=== PATIENT | male | born 1980 | race Caucasian/White ===

== ENCOUNTER → 2017-02-14 | Day surgery (SDC) | payer OTHER ==
[~2017-02-14] VITALS: Ht 182.9 cm; Wt 102.1 kg
[~2017-02-14] MED LIST: EPINEPHrine 1MG/ML INJ 30ML MD-VIAL As Ordered ONE; LIDOCAINE 2% INJ 100 MG/5 ML SDV (FOR ANES.) As Ordered ONE; LIDOCAINE 2% JELLY 30 ML As Ordered ONE; LR 1,000 ML IV SCH; METHYLENE BLUE 0.5% (5MG/ML) 10 ML AMP (PROVAYBLUE)(Q9968 PER 1MG) As Ordered ONE; MIDAZOLAM INJ 2 MG/2 ML VIAL (J2250) As Ordered ONE; ONDANSETRON 4MG/2ML VIAL (J2405) As Ordered ONE; ONDANSETRON 4MG/2ML VIAL (J2405) IV PRN; PERCOCET 5MG/325MG TAB As Ordered ONE; PROPOFOL 200 MG/20 ML VIAL As Ordered ONE; REMIFENTANIL 1MG 3ML VIAL As Ordered ONE; ROCURONIUM BROMIDE 50 MG/5 ML VIAL/SYRINGE As Ordered ONE; SODIUM CHLORIDE 0.9% NASAL GEL 15MG (AYR) As Ordered ONE; dexameTHASONE 4 MG/ML 1ML VIAL (J1100) As Ordered ONE; dexameTHASONE 4 MG/ML 1ML VIAL (J1100) IV ONE; fentaNYL 100 MCG/2 ML INJECTION (J3010) As Ordered ONE; hydrALAZINE INJ 20 MG/ML VIAL As Ordered ONE
[2017-02-14] MEDS: LIDOCAINE W/EPINEPHRINE 1% 20ML VIAL As Ordered ONE ×2 (07:54→09:04)
[2017-02-14] MEDS: PERCOCET 5MG/325MG TAB PO PRN ×2 (09:30→10:00)
[2017-02-14] MEDS: fentaNYL 100 MCG/2 ML INJECTION (J3010) IV PRN ×4 (09:30→09:45)
[2017-02-14 10:50] VITALS: BP 126/62
--- NOTE | 2017-03-09 09:08 | RO ---
DATE OF PROCEDURE: 02/14/2017 PREPROCEDURE DIAGNOSIS: Deviated nasal septum. POSTPROCEDURE DIAGNOSIS: Deviated nasal septum. PROCEDURE: Septoplasty. SURGEON: Dr. Ovi Capellan BOTTLE HOP: ANESTHESIA: General. CLINICAL PREAMBLE: This [id number] man presented to the office with complaints of chronic nasal congestion worse on the right side. Physical examination revealed deviated nasal septum into the right side. He has had not responded to medical therapy. Management options including the surgery listed above have been discussed. Patient understood and consented to the procedure. DESCRIPTION OF OPERATION: Patient was identified in preoperative holding and brought to the operating room in stable condition. In supine position on the operating room table, the patient received general anesthesia followed by orotracheal intubation without incident. Patient prepped and draped in the usual fashion for the procedure. Both sides of the nasal cavity were then packed using pledgets soaked in 1:100,000 epinephrine. Nasal septum was then infiltrated with 1% lidocaine with 1:100,000 epinephrine. Left hemitransfixion incision was made. Mucoperichondrial mucoperiosteal flap was developed on the left side of the nasal septum. The bony cartilaginous junction was then disarticulated. Deviated portion of perpendicular plate of the vomer bone were then resected using the cutting [place] forceps. The maxillary crest was then isolated and resected using chisel mallet. Deviated portion of the nasal septal cartilage was isolated and resected as well. The septum at this time was in midline position. The hemitransfixion incision was closed using 3-0 Chromic suture. The Biggs splint was inserted into each side of the nasal cavity and secured anteriorly using 3-0 Nylon suture. At the end of the procedure, sponge and instrument counts are correct. No complications were encountered. Estimated blood loss was approximately 50 mL. General anesthesia was reversed and patient was awakened and brought to recovery room in stable condition. GREER
== END | disposition home or self-care (01) ==
LOC: M SDC 05:45
PROVIDERS: ATTEND Otolaryngology
DX: J34.2 Deviated nasal septum (principal); F43.10 Post-traumatic stress disorder, unspecified
CPT/HCPCS: 30520; 88300; J1100; J2250; J2405; J3010; Q9968

== ENCOUNTER 2017-10-18 08:10 | Emergency (ER) | payer OTHER ==
[2017-10-18] MEDS: KETOROLAC 60 MG/2 ML VIAL (J1885) IM (09:37)
== END 2017-10-18 09:58 | disposition home or self-care (01) ==
LOC: M ED 08:10
DX: M54.6 Pain in thoracic spine (principal); G89.29 Other chronic pain
CPT/HCPCS: J1885

== ENCOUNTER 2018-02-14 15:49 | Emergency (ER) | payer OTHER ==
[2018-02-14] MEDS: ONDANSETRON 4 MG ORAL DISINTEGRATING TAB (Q0162 PER 1MG) PO (17:10)
[2018-02-14] MEDS: PERCOCET 5MG/325MG TAB PO (17:13)
== END 2018-02-14 18:13 | disposition home or self-care (01) ==
LOC: M ED 15:49
DX: S92.422A Displaced fracture of distal phalanx of left great toe, initial encounter for closed fracture (principal); W22.8XXA Striking against or struck by other objects, initial encounter; Y92.59 Other trade areas as the place of occurrence of the external cause; Y99.0 Civilian activity done for income or pay; Z88.5 Allergy status to narcotic agent
CPT/HCPCS: J0690

== ENCOUNTER → 2020-05-12 | Outpatient (REF) ==
[~2020-05-12] MED LIST changes: +AUGM875T28 PO; +CYCL-707 PO; -EPINEPHrine 1MG/ML INJ 30ML MD-VIAL As Ordered ONE; -LIDOCAINE 2% INJ 100 MG/5 ML SDV (FOR ANES.) As Ordered ONE; -LIDOCAINE 2% JELLY 30 ML As Ordered ONE; -LR 1,000 ML IV SCH; -METHYLENE BLUE 0.5% (5MG/ML) 10 ML AMP (PROVAYBLUE)(Q9968 PER 1MG) As Ordered ONE; -MIDAZOLAM INJ 2 MG/2 ML VIAL (J2250) As Ordered ONE; +NAPR220C PO; -ONDANSETRON 4MG/2ML VIAL (J2405) As Ordered ONE; -ONDANSETRON 4MG/2ML VIAL (J2405) IV PRN; -PERCOCET 5MG/325MG TAB As Ordered ONE; -PROPOFOL 200 MG/20 ML VIAL As Ordered ONE; -REMIFENTANIL 1MG 3ML VIAL As Ordered ONE; -ROCURONIUM BROMIDE 50 MG/5 ML VIAL/SYRINGE As Ordered ONE; -SODIUM CHLORIDE 0.9% NASAL GEL 15MG (AYR) As Ordered ONE; -dexameTHASONE 4 MG/ML 1ML VIAL (J1100) As Ordered ONE; -dexameTHASONE 4 MG/ML 1ML VIAL (J1100) IV ONE; -fentaNYL 100 MCG/2 ML INJECTION (J3010) As Ordered ONE; -hydrALAZINE INJ 20 MG/ML VIAL As Ordered ONE
[2020-05-14 09:41] LABS: INFLUENZA A AMPLIFICATION NEGATIVE (NEGATIVE); INFLUENZA B AMPLIFICATION NEGATIVE (NEGATIVE)
--- NOTE | 2020-05-18 12:53 | REP ---
BILATERAL TIBIA-FIBULA CLINICAL: Autopsy. TECHNIQUE: AP and lateral views of the right and left tibia/fibula. FINDINGS: Left tibia demonstrates interosseous catheter via the anterior proximal tibial shaft. Overlying subcutaneous emphysema noted. No evidence for acute fracture or dislocation. Right tibia demonstrates interosseous catheter via the anterior proximal tibial shaft. Subcutaneous emphysema noted. No acute fracture or dislocation. IMPRESSION: No evidence for acute fracture or dislocation. MTDD
--- NOTE | 2020-05-18 12:54 | REP ---
BILATERAL FEMUR RADIOGRAPHS CLINICAL: Autopsy. TECHNIQUE: AP and lateral views of the right and left femur. FINDINGS: Visualized portions of the femurs are intact and without evidence for acute fracture or dislocation. Overlying subcutaneous emphysema noted bilaterally. IMPRESSION: No obvious acute fracture or dislocation to the visualized bilateral femurs. MTDD
--- NOTE | 2020-05-18 12:56 | REP ---
PELVIC RADIOGRAPH CLINICAL: Autopsy. TECHNIQUE: Single AP view of the pelvis. FINDINGS: The osseous structures appear relatively intact although fractures involving the right superior and inferior pubic rami cannot definitively be excluded. Evaluation is limited by extensive overlying subcutaneous emphysema and under penetration. IMPRESSION: Possible fractures involving the right inferior and superior pubic rami. MTDD
--- NOTE | 2020-05-18 12:57 | REP ---
CHEST X-RAY CLINICAL: Autopsy. TECHNIQUE: Single portable supine view of the chest. FINDINGS: Evaluation is significantly limited due to extensive diffuse subcutaneous emphysema. The cardiac silhouette is normal. Multiple left rib fractures are identified. IMPRESSION: Limited examination. Multiple left rib fractures. MTDD
--- NOTE | 2020-05-18 12:58 | REP ---
SKULL RADIOGRAPHS CLINICAL: Autopsy. TECHNIQUE: Portable AP and cross-table lateral views of the skull. FINDINGS: Evaluation is somewhat limited by technique. No obvious acute fracture. Subcutaneous emphysema suggested. IMPRESSION: No obvious acute fracture. MTDD
--- NOTE | 2020-05-18 12:59 | REP ---
CERVICAL SPINE SERIES CLINICAL: Autopsy. TECHNIQUE: AP and cross-table lateral views of the cervical spine. FINDINGS: Evaluation is essentially nondiagnostic due to overlying subcutaneous emphysema and under-penetration. AP views suggest satisfactory alignment. Incidental left rib fractures noted. IMPRESSION: Limited examination as above. MTDD
== END ==
LOC: M LAB 15:15
DX: Z02.89 Encounter for other administrative examinations